=== PATIENT | female | born 1995 ===

== ENCOUNTER 2019-12-06 19:57 | Emergency (ER) | payer BC ==
--- NOTE | 2019-12-06 21:02 | EDM.PDOC ---
ED HPI GENERAL MEDICAL PROBLEM - General Chief Complaint: [employer] CL[employer] Problem Stated Complaint: BLEEDING IN EARLY Time Seen by Provider: 12/06/19 21:00 - History of Present Illness INITIAL COMMENTS - FREE TEXT/NARRATIVE: History of present illness: [] This 24-year-old G2, P1 Ab0 woman has a scant menstrual period for the last 2 or 3 months. Her last period was 7 weeks ago. When she was seen for possible UTI 2 weeks ago she had a positive test. Today she began to cramp and bleed at 2 PM. Subsequently the cramping has slowed down and she still bleeding a little bit. She is bleeding heavier than her recent scan. But less than what she would consider normal period. She is not orthostatic, diaphoretic, lightheaded. Review of systems: As per history of present illness and below otherwise all systems reviewed and negative. Past medical history: As per history of present illness and as reviewed below otherwise noncontributory. Surgical history: As per history of present illness and as reviewed below otherwise noncontributory. Social history: No reported history of drug or alcohol abuse. Family history: As per history of present illness and as reviewed below otherwise noncontributory. Physical exam: Constitutional - well developed, well-nourished and in no acute distress HEENT - normocephalic, no evidence of trauma - external nose and mouth normal - no mass in neck and no JVD - mucosae moist EYES - full EOM, PERRL, no icterus - no evidence of inflammation, injection, or drainage Respiratory - no respiratory distress, equal bilateral expansion, lungs clear to auscultation and no abnormal lung sounds Cardiovascular - Regular Rhythm with S1 and S2 appreciated and no murmur, gallop or rub. GI - abdomen soft without distension or organomegaly - normal bowel sounds - no guard or rebound Musculoskeletal no gross deformity of long bones or joints - no tenderness, swelling or edema Neurologic - Alert and oriented times four - CN II-XII grossly intact - motor sensory and coordination symmetrically normal Psychiatric - appropriate mood and affect with normal thought content Hematologic - No petechiae or purpura - mucosa appropriate color and sclera not pale - normal nail bed color and refill Integument - no rash or evidence of trauma - normal turgor Diagnostics: [] Therapeutics: [] Impression: [] Plan: [] Definitive disposition and diagnosis as appropriate pending reevaluation and review of above. - Related Data Allergies Allergy/AdvReac Type Severity Reaction Status Date / Time No Known Allergies Allergy Verified 12/06/19 20:24 Home Meds: Home Meds Pnv No.95/Ferrous Fum/Folic AC [ Caplet] 1 tab PO DAILY 12/06/19 [History] Past Medical History - Past Health History Medical/Surgical History: Denies Medical/Surgical History Social & Family History - Family History Family Medical History: Noncontributory - Tobacco Use Smoking Status *Q: Never Smoker - Recreational Drug Use Recreational Drug Use: No ED ROS GENERAL - Review of Systems Review Of Systems: Comprehensive ROS is negative, except as noted in HPI. ED EXAM, GENERAL - Physical Exam Exam: See Below Free Text/Narrative:: My physical exam is in the HPI Course - Vital Signs Text/Narrative:: Limb 40 7 PM the patient is in no acute distress and still not orthostatic. Ultrasound showed a heart rate of 98 with a 6-week size IUP and a chorionic hemorrhage. Last Recorded V/S: Last Vital Signs Temp 99.8 F 12/06/19 20:22 Pulse 87 12/06/19 20:22 Resp 18 12/06/19 20:22 BP 118/71 12/06/19 20:22 Pulse Ox 99 12/06/19 20:22 - Orders/Labs/Meds Orders: Active Orders 24 hr Category Date Time Status Sodium Chloride 0.9% [Saline Flush] Med 12/06/19 21:06 Active 10 ml FLUSH ASDIRECTED PRN Sodium Chloride 0.9% [Saline Flush] Med 12/06/19 21:06 Active 2.5 ml FLUSH ASDIRECTED PRN Saline Lock Insert [OM.PC] Stat Oth 12/06/19 21:06 Ordered Medication Orders Sodium Chloride (Saline Flush) 10 ml FLUSH ASDIRECTED PRN PRN Reason: Keep Vein Open Sodium Chloride (Saline Flush) 2.5 ml FLUSH ASDIRECTED PRN PRN Reason: Keep Vein Open Labs: Laboratory Tests 12/06/19 12/06/19 12/06/19 Range/Units 21:34 21:34 21:34 WBC 11.36 H (4.0-11.0) K/uL RBC 4.06 L (4.30-5.90) M/uL Hgb 12.7 (12.0-16.0) g/dL Hct 37.4 (36.0-46.0) % MCV 92.1 (80.0-98.0) fL MCH 31.3 (27.0-32.0) pg MCHC 34.0 (31.0-37.0) g/dL RDW Std Deviation 42.2 (28.0-62.0) fl RDW Coeff of Greg 13 (11.0-15.0) % Plt Count 341 (150-400) K/uL MPV 9.50 (7.40-12.00) fL Neut % (Auto) 77.2 (48.0-80.0) % Lymph % (Auto) 13.7 L (16.0-40.0) % [place] % (Auto) 7.7 (0.0-15.0) % Eos % (Auto) 1.3 (0.0-7.0) % Baso % (Auto) 0.1 (0.0-1.5) % Neut # (Auto) 8.8 H (1.4-5.7) K/uL Lymph # (Auto) 1.6 (0.6-2.4) K/uL [place] # (Auto) 0.9 H (0.0-0.8) K/uL Eos # (Auto) 0.2 (0.0-0.7) K/uL Baso # (Auto) 0.0 (0.0-0.1) K/uL HCG, Quant 87547.0 mIU/mL Blood Type B NEGATIVE Antibody Screen NEGATIVE Rhogam Indicated YES Meds: Medications Generic Name Dose Route Start Last Admin Trade Name Freq PRN Reason Stop Dose Admin Sodium Chloride 10 ml 12/06/19 21:06 Saline Flush FLUSH ASDIRECTED PRN Keep Vein Open Sodium Chloride 2.5 ml 12/06/19 21:06 Saline Flush FLUSH ASDIRECTED PRN Keep Vein Open Departure - Departure Time of Disposition: 23:49 Disposition: Home, Self-Care 01 Condition: Good Clinical Impression: Threatened - Discharge Information Instructions: Threatened Miscarriage Referrals: PCP,Not In Area [Primary Care Provider] - Forms: ED Department Discharge Additional Instructions: You received RhoGam here [facility] [address] [address] [facility] [place] [address] [place] [id number] The following information is given to patients seen in the emergency department who are being discharged to home. This information is to outline your options for follow-up care. We provide all patients seen in our emergency department with a follow-up referral. The need for follow-up, as well as the timing and circumstances, are variable depending upon the specifics of your emergency department visit. If you don't have a primary care physician on staff, we will provide you with a referral. We always advise you to contact your personal physician following an emergency department visit to inform them of the circumstance of the visit and for follow-up with them and/or the need for any referrals to a consulting specialist. The emergency department will also refer you to a specialist when appropriate. This referral assures that you have the opportunity for follow-up care with a specialist. All of these measure are taken in an effort to provide you with optimal care, which includes your follow-up. Under all circumstances we always encourage you to contact your private physician who remains a resource for coordinating your care. When calling for follow-up care, please make the office aware that this follow-up is from your recent emergency room visit. If for any reason you are refused follow-up, please contact the [facility] Emergency Department at and asked to speak to the emergency department charge nurse. Sepsis Event Note (ED) - Evaluation Sepsis Screening Result: No Definite Risk - Focused Exam Vital Signs: Vital Signs Temp Pulse Resp BP Pulse Ox 12/06/19 20:22 99.8 F 87 18 118/71 99 - My Orders Last 24 Hours: My Active Orders 12/06/19 21:06 Sodium Chloride 0.9% [Saline Flush] 10 ml FLUSH ASDIRECTED PRN Sodium Chloride 0.9% [Saline Flush] 2.5 ml FLUSH ASDIRECTED PRN Saline Lock Insert [OM.PC] Stat - Assessment/Plan Last 24 Hours: My Active Orders 12/06/19 21:06 Sodium Chloride 0.9% [Saline Flush] 10 ml FLUSH ASDIRECTED PRN Sodium Chloride 0.9% [Saline Flush] 2.5 ml FLUSH ASDIRECTED PRN Saline Lock Insert [OM.PC] Stat
[2019-12-06] MEDS ORDERED: Sodium Chloride 0.9% 10 ML Syringe FLUSH PRN (21:06)
[2019-12-06] MEDS ORDERED: Sodium Chloride 0.9% 2.5 ML Syringe FLUSH PRN (21:06)
--- NOTE | 2019-12-06 23:32 | US ---
INDICATION: cramping, vaginal bleeding early OB OBSTETRICAL ULTRASOUND Technique: Transvaginal scanning of the pelvis was performed. Findings: The uterus contains a gestational sac. The gestational sac contains a yolk sac and an embryonic pole which exhibits cardiac activity with a heart rate of 98 BPM. The crown-rump length measures 1.7 millimeters. The gestational sac, measuring 0.87 x 1.45 x 1.47 centimeters, corresponds to an estimated menstrual age of 6 weeks 0 days and an EDGAR of 07/31/2020. There is a subchorionic hematoma adjacent to the gestational sac, which hematoma measures 3.6 x 1.9 x 2.2 centimeters. The ovaries appear within normal limits bilaterally. No significant free pelvic fluid is identified. IMPRESSION: 1. Live very early intrauterine with estimated menstrual age of 6 weeks 0 days and EDGAR of 07/31/2020. 2. Embryonic bradycardia is noted, with heart rate of 98 beats per minute. 3. Subchorionic hematoma is noted, measuring 3.6 x 1.9 x 2.2 centimeters. KALEB MCCULLOUGH MD [employer] Dictated by Iker Mccullough MD @ 12/06/2019 11:29:57 PM Dictated by: Iker Mccullough MD @ 12/06/2019 23:30:18 (Electronically Signed)
== END 2019-12-07 00:01 | disposition home or self-care (01) ==
LOC: MW.ED 19:57
DX: O20.0 Threatened abortion (principal); Z3A.01 Less than 8 weeks gestation of pregnancy
CPT/HCPCS: 36415; 76813; 84702; 85025; 86850; 86900; 86901; 99284; J2792; 76816-26; 99283